=== PATIENT | female | born 1940 | race Caucasian/White ===

== ENCOUNTER → 2019-04-23 10:29 | Outpatient (CLI) | payer MEDICARE, SELFPAY ==
--- NOTE | ~2019-04-23 | DEXA_ITS ---
Bone Density Report Name: Nicolette Hinton Age: 79 Sex: Female Ethnicity: White Date of : 1940 Indication: postmenopausal; screening for osteoporosis; height loss; prior fracture; asthma or emphysema; hysterectomy; Referring Provider: COLLETTE, SEE Perez Study: Bone densitometry was performed. Exam Date: April 23, 2019 Accession number: [id number] Bone Density: Region BMD T-score Z-score Classification AP Spine (L1-L4) 0.839 -1.9 0.6 Osteopenia Femoral Neck (Left) 0.643 -1.9 0.3 Osteopenia Total Hip (Left) 0.718 -1.8 0.1 Osteopenia Femoral Neck (Right) 0.601 -2.2 -0.1 Osteopenia Total Hip (Right) 0.651 -2.4 -0.5 Osteopenia Total Hip Mean 0.685 -2.1 -0.2 Osteopenia World Health Organization criteria for BMD impression classify patients as: Normal (T-score at or above -1.0), Osteopenia (T-score between -1.0 and -2.5), or Osteoporosis (T-score at or below -2.5). 10-year Fracture Risk(1): Major Osteoporotic Fracture 22% Hip Fracture 8.8% Reported Risk Factors: [place] (), Neck BMD=0.601, BMI=31.7, previous fracture, smoking (1) FRAX(R) Version 3.08. Fracture probability calculated for an untreated patient. Fracture probability may be lower if the patient has received treatment. Clinical Information Provided by Patient: Has had a low trauma fracture Smokes Has the following medical conditions: Asthma or Emphysema, Hysterectomy, CHRONIC RENAL DISEASE, BREAST CANCER 2007, COLON CANCER 2016 Patient maximum height was 66.5 Menopause Age: 40 No regular weight bearing exercise Does not regularly consume dairy products Drinks caffeinated beverages Onset of menses at age 16 Number of children 3 Impression: The patient has low bone mass, based on the Right Total Hip T-score. The patient has an estimated ten-year risk of hip fracture of 8.8% and an estimated ten-year risk of major fracture of 22%, based on the WHO FRAX algorithm. The patient has risk factors, including: smoking, previous fracture. Discussion: BONE DENSITY IS LOW AT ONE OR MORE SKELETAL SITES. THE PATIENT'S BMD AND CLINICAL RISK FACTORS CONTRIBUTE TO THIS PATIENT'S HIGH RISK OF FRACTURE. This patient's lowest T-score is low at one or more skeletal sites. It meets the World Health Organization's (WHO) criteria for ?low bone mass? (T-score between -1.0 and -2.5). The patient's 10-year risk of hip fracture and 10 year risk of a major osteoporotic fracture as calculated by FRAX exceeds the threshold where pharmacological therapy is recommended by the National Osteoporosis Foundation (NOF). However, all treatment decisions require clinical judgment and consideration of individual patient factors, including patient preferences, comorbidities, previous drug use, risk factors not captured in the FRAX model (e.g., frailty, falls,
== END ==
PROVIDERS: PCP Internal Medicine; Visit Provider Internal Medicine
DX: N95.9 Unspecified menopausal and perimenopausal disorder (principal); M85.88 Other specified disorders of bone density and structure, other site; M85.852 Other specified disorders of bone density and structure, left thigh; M85.851 Other specified disorders of bone density and structure, right thigh
CPT/HCPCS: 77080

== ENCOUNTER → 2020-03-29 10:44 | Outpatient (CLI) | payer MEDICARE, SELFPAY ==
--- NOTE | ~2020-03-29 | MM_ITS ---
EXAMINATION: MM screening andrew RT w blaine HISTORY: Screening right mammogram, history of left mastectomy TECHNIQUE: Craniocaudal and mediolateral oblique 3-D tomosynthesis images were obtained and synthetic 2-D images were generated. CAD analysis was submitted and interpreted. COMPARISON: 02/22/2019, 02/04/2018, 02/18/2017 BREAST PARENCHYMAL COMPOSITION: The breast is almost entirely fatty. FINDINGS: There is no evidence of suspicious mass, calcification, or architectural distortion to sugg est malignancy in either breast. There has been no suspicious interval change. IMPRESSION: 1. No mammographic evidence of malignancy. 2. Recommend routine screening mammography in one year. BI-RADS Category 1: Negative Reviewed, dictated and finalized at location A. [employer]CT SAFETY COORDINATOR
== END ==
PROVIDERS: PCP Internal Medicine; Visit Provider Internal Medicine
DX: Z12.31 Encounter for screening mammogram for malignant neoplasm of breast (principal)
CPT/HCPCS: 77063; 77067

== ENCOUNTER 2020-11-02 01:41 | Day surgery (SDC) | payer MEDICARE, SELFPAY ==
[2020-10-24 10:05] VITALS: BMI 33.3
--- NOTE | 2020-11-01 12:43 | PM.HPGS ---
History of Present Illness History of Present Illness Consent: Risks, benefits, and alternatives have been discussed and questions answered. Patient agrees to proceed with procedure. Chief complaint: esophageal stricture Narrative: Nicolette Hinton is a 80 year old female Who had a meat bolus impaction of her esophagus on August 26 when she was in [place], [place]. she could not dislodge it and therefore went to the emergency room. Subsequently she had an EGD with removal of food bolus. She had severe ulceration of the esophagus. She had been on Xarelto and therefore no additional measures were done such as biopsies ordilatation except to obtain a KAROLINA-test. She is taking pantoprazole now for 2 months and has been swallowing fairly well Review of Systems Review of Systems: All systems reviewed & are unremarkable except as noted in HPI and below PMFSH Past Medical History Medical History CAD (coronary artery disease) Carcinoma of colon CKD (chronic kidney disease) IV COPD (chronic obstructive pulmonary disease) FH: mastectomy GERD (gastroesophageal reflux disease) Hyperlipidemia Hypertension TIA (transient ischemic attack) 2013 Surgical History Surgical History History of hysterectomy Social History Social History Smoking packs per day: 1 Smoking cigarettes per day: 20.0 Smoking status: Former smoker Tobacco type: cigarettes Alcohol intake: current Alcohol use details: Yearly Living arrangements: alone Spiritual care concerns: No Meds Home Medications and Allergies Home Medications Medication Instructions Recorded Confirmed Type aspirin 81 mg tablet,delayed 81 mg PO DAILY 10/03/20 11/02/20 History release atorvastatin 10 mg tablet 10 mg PO DAILY 10/03/20 11/02/20 History lisinopril 20 mg tablet 20 mg PO BID 10/03/20 11/02/20 History rivaroxaban 2.5 mg tablet 2.5 mg PO BID 10/03/20 11/02/20 History Allergies Allergy/AdvReac Type Severity Reaction Status Date / Time hydrocodone Allergy Mild Unknown Verified 11/02/20 09:05 Penicillins Allergy Unknown Unknown Unverified 11/02/20 09:05 prednisone Allergy Hives Verified 11/02/20 09:05 Exam Const: General: alert Orientation/consciousness: patient oriented x3 Resp: Auscultation: clear to auscultation bilaterally Cardio: Rhythm: regular rhythm GI: GI Palp: Yes Soft to palpation and No Tenderness to palpation present (GI) Neuro: General: patient oriented x3 Assessment and Plan Assessment and plan (1) Erosive esophagitis: Code(s): K22.10 - Ulcer of esophagus without bleeding Status: Acute Assessment and Plan: EGD with possible biopsy or dilatation or cautery.
--- NOTE | 2020-11-01 13:30 | WPDANESEPPF ---
Anes - Initial Pre Proc Eval Procedure: Operation Date: 11/02/20 10:00 Proposed Procedures p Esophagogastroduodenoscopy - Kanu Sweeney MD Date/Time: 11/01/20 13:30 Surgeon: Kanu Sweeney MD Pre Op Diagnosis: esophageal stricture Patient Data Age: 80 Gender: F Height: 1.65 m Weight: 91 kg Allergies Allergy/AdvReac Type Severity Reaction Status Date / Time hydrocodone Allergy Mild Unknown Verified 11/02/20 09:05 Penicillins Allergy Unknown Unknown Unverified 11/02/20 09:05 prednisone Allergy Hives Verified 11/02/20 09:05 Home Medications Medication Instructions Recorded Confirmed Type aspirin 81 mg tablet,delayed 81 mg PO DAILY 10/03/20 10/24/20 History release atorvastatin 10 mg tablet 10 mg PO DAILY 10/03/20 10/24/20 History lisinopril 20 mg tablet 20 mg PO BID 10/03/20 10/24/20 History rivaroxaban 2.5 mg tablet 2.5 mg PO BID 10/03/20 10/24/20 History Patient hx anesthesia problems: none Family hx anesthesia problems: none [facility] Past Medical History Medical History (Updated 11/01/20 @ 13:32 by Ajay Rose DO) CAD (coronary artery disease) Carcinoma of colon CKD (chronic kidney disease) IV COPD (chronic obstructive pulmonary disease) FH: mastectomy GERD (gastroesophageal reflux disease) Hyperlipidemia Hypertension TIA (transient ischemic attack) 2013 Surgical History Surgical History (Updated 11/01/20 @ 13:32 by Ajay Rose DO) History of hysterectomy Social History Social History Smoking packs per day: 1 Smoking cigarettes per day: 20.0 Smoking status: Former smoker Tobacco type: cigarettes Alcohol intake: current Alcohol use details: Yearly Living arrangements: alone Spiritual care concerns: No Anes - Eval Final PreProcedure Day of Procedure 11/01/20 13:30 Patient weight: obese Heart: regular rate and rhythm Lungs: clear to auscultation and normal air movement Airway: Mallampati scale class II Neurological: alert and oriented Last oral intake: >/= 8 hours ASA classification: III Emergent: no Anesthetic plan: proceed Anesthesia type and monitoring: general GIVS and standard monitoring Informed Consent: The patient's anesthetic plan and its attendant risks and benefits were discussed with the patient/family/POA. Questions were solicited and answers provided to the satisfaction of the patient/family/POA.
[2020-11-02 08:58] VITALS: BP 143/57; PULSE 66; RESP 16; TEMP 36.4; O2SAT 100
[2020-11-02] MEDS: LACTATED RINGERS 1,000 ML 150 ML IV CONT (09:24)
[2020-11-02 09:47] VITALS: BP 94/52; PULSE 54; RESP 25; O2SAT 99
[2020-11-02 09:57] VITALS: BP 105/49; PULSE 56; RESP 15; O2SAT 95
[2020-11-02 10:07] VITALS: BP 111/45; PULSE 58; RESP 18; O2SAT 100
[2020-11-02 10:17] VITALS: BP 124/57; PULSE 57; RESP 18; O2SAT 98
== END 2020-11-02 10:34 | disposition home or self-care (01) ==
PROVIDERS: PCP Internal Medicine; Visit Provider Internal Medicine Gastroenterology
PROC: 0DJ08ZZ Inspection of Upper Intestinal Tract, Via Natural or Artificial Opening Endoscopic (ICD-10-PCS; CPT 43235; principal; 2020-11-02 10:00)
DX: K22.10 Ulcer of esophagus without bleeding (principal); K22.2 Esophageal obstruction; K29.80 Duodenitis without bleeding; K44.9 Diaphragmatic hernia without obstruction or gangrene; I25.10 Atherosclerotic heart disease of native coronary artery without angina pectoris; I12.9 Hypertensive chronic kidney disease with stage 1 through stage 4 chronic kidney disease, or unspecified chronic kidney disease; N18.4 Chronic kidney disease, stage 4 (severe); J44.9 Chronic obstructive pulmonary disease, unspecified; E78.5 Hyperlipidemia, unspecified; Z85.038 Personal history of other malignant neoplasm of large intestine; Z86.73 Personal history of transient ischemic attack (TIA), and cerebral infarction without residual deficits; Z87.891 Personal history of nicotine dependence
CPT/HCPCS: 43249; 43239; 88305; C1726; J2704; J7120

== ENCOUNTER 2024-04-26 11:26 | Emergency (ER) | payer MEDICARE, SELFPAY ==
[2024-04-26 11:27] VITALS: BP 128/91; PULSE 93; RESP 18; TEMP 36.2; O2SAT 97
[2024-04-26] MEDS: TETANUS,DIPHTHERIA,AC PERTUSSIS ADULT (0.5 ML) BOOSTRIX IM (14:17)
--- NOTE | 2024-04-26 15:29 | ED.WOUNDLAC ---
HPI - Wound/Laceration General Chief Complaint: Wound/Laceration Stated Complaint: skin tear Time Seen by Provider: 04/26/24 14:03 History of Present Illness HPI narrative: Patient is an 84-year-old female who presents ER with swelling and a skin tear to right hand. It occurred last night when a dog jumped up and caught her hand with a cough. She has not believe it was the mouth. [place] PCP [place] so she went to urgent care who then referred her here. No fevers or chills or sweats. Patient is on Eliquis. She tried wrapping the hand last night with an Jacques wrap but it caused significant swelling today. Unknown last tetanus immunization. No additional injuries or concerns. Related Data Home Medications ?Medication ?Instructions ?Recorded ?Confirmed ?Last Taken ?Type aspirin 81 mg tablet,delayed 81 mg PO DAILY 10/03/20 11/02/20 11/01/20 08:00 History release atorvastatin 10 mg tablet 10 mg PO DAILY 10/03/20 11/02/20 11/01/20 08:00 History lisinopril 20 mg tablet 20 mg PO BID 10/03/20 11/02/20 11/01/20 08:00 History rivaroxaban 2.5 mg tablet (Xarelto) 2.5 mg PO BID 10/03/20 11/02/20 10/29/20 History Allergies Allergy/AdvReac Type Severity Reaction Status Date / Time hydrocodone Allergy Mild Unknown Verified 04/26/24 13:34 Penicillins Allergy Unknown Unknown Verified 04/26/24 13:34 prednisone Allergy Hives Verified 04/26/24 13:34 Review of Systems Constitutional: Constitutional: Reports no additional constitutional complaints Musculoskeletal: Musculoskeletal: Reports no additional musculoskeletal complaints Integumentary/Breasts: Skin/Breast: Reports system reviewed and no additional complaints, except as docu Neurologic: Reports system reviewed and no additional complaints, except as documented [facility] Past Medical History Medical History CAD (coronary artery disease) Carcinoma of colon CKD (chronic kidney disease) IV COPD (chronic obstructive pulmonary disease) FH: mastectomy GERD (gastroesophageal reflux disease) Hyperlipidemia Hypertension TIA (transient ischemic attack) 2013 Surgical History Surgical History History of hysterectomy Social History Social History Smoking packs per day: 1 Smoking cigarettes per day: 20.0 Smoking status: Former smoker Tobacco type: cigarettes Alcohol intake: current Alcohol use details: Yearly Living arrangements: alone Spiritual care concerns: No Exam Narrative: GENERAL: Well-appearing, well-nourished, and in no acute distress. HEAD: Normocephalic, atraumatic. ENT: Mucous membranes moist. HEART: Regular rate and rhythm. Normal peripheral pulses. EXTREMITIES: Right hand with swelling and bruising mainly over the dorsum of the hand where there is a 2.5 cm skin tear with approximately 8 mm of separation. There is a ring stuck on the right ring finger. SKIN: Warm, dry, no rash. NEURO: Alert and oriented x3. PSYCH: Normal mood and affect. Course Course Emergency Course: Pressure applied to the ring finger and the ring was removed. Skin is too thin to tolerate repair of the skin tear. Discussed imaging results and treatment plan and patient verbalized understanding. Tetanus was updated here. Vital Signs Vital signs: Vital Signs Temperature 97.1 F L 04/26/24 11:27 Pulse Rate 93 04/26/24 11:27 Respiratory Rate 18 04/26/24 11:27 Blood Pressure 128/91 H 04/26/24 11:27 Pulse Oximetry 97 04/26/24 11:27 Oxygen Delivery Room Air 04/26/24 11:27 Temperature 97.1 F L 04/26/24 11:27 Pulse Rate 93 04/26/24 11:27 Respiratory Rate 18 04/26/24 11:27 Blood Pressure 128/91 H 04/26/24 11:27 Pulse Oximetry 97 04/26/24 11:27 Oxygen Delivery Room Air 04/26/24 11:27 MDM - Wound/Laceration Imaging Data Radiologist's impression: ITS Impressions Hand X-Ray 04/26/24 14:23 IMPRESSION: 1. Soft tissue swelling and soft tissue gas at the dorsum of the hand consistent with reported history of laceration. No acute osseous abnormality or radiopaque foreign body. 2. 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 Discharge Plan Discharge Clinical Impression: Skin tear, Contusion of hand Patient Disposition: Home, Self-Care Condition: Stable Instructions: Antibiotic Form, Contusion in Adults (ED) Additional Instructions: You have a skin tear and contusion to your hand. Your being started on antibiotics due to swelling to hopefully prevent infection. Return the ER if you have new injury, worsening swelling, fever 100.4? F. Your tetanus shot was updated. Patient Language: Nigerian Prescriptions: New doxycycline hyclate 100 mg capsule 100 mg PO BID Qty: 14 0RF No Action lisinopril 20 mg tablet 20 mg PO BID atorvastatin 10 mg tablet 10 mg PO DAILY aspirin 81 mg tablet,delayed release (DR/EC) 81 mg PO DAILY Xarelto 2.5 mg tablet 2.5 mg PO BID pantoprazole 40 mg tablet,delayed release (DR/EC) 20 mg PO DAILY 28 Days Qty: 30 1RF Follow-up/Referrals: Felix,Abisai Perez MD [Primary Care Provider] - 1 Week
== END 2024-04-26 16:47 | disposition home or self-care (01) ==
PROVIDERS: Emergency Provider Emergency Medicine; PCP Internal Medicine
DX: S61.451A Open bite of right hand, initial encounter (principal); S60.221A Contusion of right hand, initial encounter; W54.0XXA Bitten by dog, initial encounter; Z79.01 Long term (current) use of anticoagulants; Z79.82 Long term (current) use of aspirin; I25.10 Atherosclerotic heart disease of native coronary artery without angina pectoris; Z85.038 Personal history of other malignant neoplasm of large intestine; N18.4 Chronic kidney disease, stage 4 (severe); J44.9 Chronic obstructive pulmonary disease, unspecified; K21.9 Gastro-esophageal reflux disease without esophagitis; E78.5 Hyperlipidemia, unspecified; I12.9 Hypertensive chronic kidney disease with stage 1 through stage 4 chronic kidney disease, or unspecified chronic kidney disease; Z86.73 Personal history of transient ischemic attack (TIA), and cerebral infarction without residual deficits; Z87.891 Personal history of nicotine dependence; Z23 Encounter for immunization
CPT/HCPCS: 73130; 90471; 90715; 99283